=== PATIENT | male | born 1965 | race Two or more races ===

== ENCOUNTER 2022-03-23 15:31 | Inpatient (IN) | payer OTHER, SELFPAY ==
[2022-03-23 17:33] VITALS: BMI 21.9
[2022-03-23] MEDS ORDERED: Senokot S 8.6-50 MG TAB PO PRN (17:58)
[2022-03-23] MEDS ORDERED: Ondansetron PF 4 MG/2 ML Vial IVP PRN (17:58)
[2022-03-23] MEDS ORDERED: Calcium Carbonate 500 MG ChewTAB PO PRN (17:58)
[2022-03-23 19:14] LABS: Band 2 % (5-11); Hemoglobin 14.8 g/dL (14.0-18.0); Lymphocytes 6 % (21-51); MDiff Complete? YES; Mean Corpuscular HGB CONC 34.1 g/dL (32.0-36.0); Mean Corpuscular Volume 96.7 fL (78.0-98.0); Mean Platelet Volume 7.2 fL (7.4-10.4); Monocytes 10 % (0-10); Neutrophil 80 % (42-75); Platelet Count 452 thou/uL (130-400); Platelet Morphology Comment Appears Increased; Polychromasia SLIGHT = 2-3 cells (100X) (0-2/hpf); RBC Distribution Width 11.2 % (11.5-14.5); Reactive Lymphocytes 2 % (0-10); Red Blood Cell (RBC) Count 4.48 mill/uL (4.70-6.10)
[2022-03-23 19:17] LABS: Anion Gap 25 mmol/L (10-20); BUN (Urea Nitrogen) 23 mg/dL (8.4-25.7); Calc. Creatinine Clearance 42 mL/min (70-130); Calcium 9.8 mg/dL (7.8-10.44); Carbon Dioxide 17 mmol/L (22-29); Chloride 93 mmol/L (98-107); Estimated GFR 40; Glucose 244 mg/dL (70-105); Sodium 131 mmol/L (136-145)
[2022-03-23] MEDS: HYDROcodone/Acetaminophen 5/325 mg Tablet PO PRN ×2 (19:48→23:32)
[2022-03-23] MEDS ORDERED: Famotidine 20 MG TAB PO SCH (21:00)
[2022-03-24] MEDS ORDERED: Dextrose 5% in Water 1,000 ML IV PRN (00:24)
[2022-03-24] MEDS ORDERED: Dextrose 50% Abboject 50 ML SYRINGE SLOW IVP PRN (00:24)
[2022-03-24] MEDS ORDERED: Piperacillin/Tazobactam 3.375 GM in Sodium Chloride 0.9% 100 ML IVPB SCH ×2 (01:00→10:00)
[2022-03-24] MEDS ORDERED: Vancomycin Sliding Scale IVPB PRN (01:10)
[2022-03-24] MEDS ORDERED: VANCOMYCIN 1.75 GM/500 ML BAG 1.75 GM in Premix Bag 1 BAG IVPB SCH (01:15)
[2022-03-24 01:26] LABS: #Monocytes 1.1 thou/uL (0.11-0.59); #Neutrophils 7.8 thou/uL (1.40-6.50); %Basophils 0.2 % (0.0-1.0); %Eosinophils 0.1 % (0.0-10.0); %Lymphocytes 9.7 % (21.0-51.0); %Monocytes 10.8 % (0.0-10.0); %Neutrophils 79.3 % (42.0-75.0); Hemoglobin 13.5 g/dL (14.0-18.0); Mean Corpuscular HGB CONC 33.6 g/dL (32.0-36.0); Mean Corpuscular Hemoglobin 32.6 pg (27.0-31.0); Mean Corpuscular Volume 97.2 fL (78.0-98.0); Mean Platelet Volume 6.8 fL (7.4-10.4); Platelet Count 439 thou/uL (130-400); RBC Distribution Width 11.3 % (11.5-14.5); Red Blood Cell (RBC) Count 4.12 mill/uL (4.70-6.10); White Blood Cell (WBC) Count 9.8 thou/uL (4.8-10.8)
[2022-03-24] MEDS: Sodium Chloride 0.9% 1,000 ML IV SCH ×2 (01:37→16:50)
[2022-03-24 01:44] LABS: Anion Gap 26 mmol/L (10-20); BUN (Urea Nitrogen) 26 mg/dL (8.4-25.7); CRP (Inflammatory) 27.52 mg/dL (= or < 0.5); Calc. Creatinine Clearance 37 mL/min (70-130); Calcium 9.5 mg/dL (7.8-10.44); Carbon Dioxide 15 mmol/L (22-29); Chloride 91 mmol/L (98-107); Estimated GFR 35; Glucose 345 mg/dL (70-105); Potassium 4.3 mmol/L (3.5-5.1); Sodium 128 mmol/L (136-145)
[2022-03-24] MEDS: HYDROcodone/Acetaminophen 10/325 mg Tablet PO SCH ×3 (04:29→17:56)
[2022-03-24] MEDS: HumaLOG 300 UNITS/3 ML VIAL SC PRN ×3 (06:00→17:56)
[2022-03-24] MEDS ORDERED: Atorvastatin Calcium 20 MG TAB PO SCH (09:00)
[2022-03-24] MEDS ORDERED: Lisinopril 20 MG TAB PO SCH (09:00)
[2022-03-24] MEDS ORDERED: Gabapentin 300 MG CAP PO SCH ×2 (09:00→15:00)
[2022-03-24] MEDS ORDERED: Insulin Glargine 30 UNITS/0.3 ML VIAL SC SCH (09:30)
[2022-03-24] MEDS: cefTRIAXone\\ROCEPHIN 2 GM in Sodium Chloride 0.9% 100 ML IVPB SCH ×2 (10:36→10:45)
[2022-03-24] MEDS: Gabapentin 100 MG CAP PO SCH ×2 (15:24→22:05)
[2022-03-24] MEDS: Lactated Ringer's 1,000 ML IV SCH ×3 (18:30→22:07)
[2022-03-24 18:58] LABS: Creatinine, Urine 42.45 mg/dL (63-166)
[2022-03-24] MEDS: Famotidine 20 MG TAB PO SCH (22:04)
[2022-03-24] MEDS: Atorvastatin Calcium 40 MG TAB PO SCH (22:06)
[2022-03-25] MEDS: HYDROcodone/Acetaminophen 10/325 mg Tablet PO SCH ×4 (00:16→15:50)
[2022-03-25] MEDS ORDERED: Ibuprofen 200 MG TAB PO SCH (02:00)
[2022-03-25] MEDS: Acetaminophen 325 MG TAB PO PRN (02:29)
[2022-03-25] MEDS: Vancomycin 1 GM in Premix Bag 1 BAG IVPB SCH (02:30)
[2022-03-25 06:25] LABS: #Lymphocytes 0.9 thou/uL (1.20-3.40); #Monocytes 0.5 thou/uL (0.11-0.59); #Neutrophils 7.4 thou/uL (1.40-6.50); %Basophils 0.1 % (0.0-1.0); %Eosinophils 0.2 % (0.0-10.0); %Lymphocytes 10.4 % (21.0-51.0); %Monocytes 5.8 % (0.0-10.0); %Neutrophils 83.5 % (42.0-75.0); Hemoglobin 11.1 g/dL (14.0-18.0); Mean Corpuscular HGB CONC 33.9 g/dL (32.0-36.0); Mean Corpuscular Hemoglobin 32.4 pg (27.0-31.0); Mean Corpuscular Volume 95.6 fL (78.0-98.0); Mean Platelet Volume 6.7 fL (7.4-10.4); Platelet Count 389 thou/uL (130-400); RBC Distribution Width 11.1 % (11.5-14.5); Red Blood Cell (RBC) Count 3.44 mill/uL (4.70-6.10); White Blood Cell (WBC) Count 8.9 thou/uL (4.8-10.8)
[2022-03-25 06:27] LABS: Hemoglobin A1c 10.2 % (4.0-6.0)
[2022-03-25 06:43] LABS: Anion Gap 17 mmol/L (10-20); BUN (Urea Nitrogen) 17 mg/dL (8.4-25.7); Calc. Creatinine Clearance 40 mL/min (70-130); Carbon Dioxide 22 mmol/L (22-29); Chloride 95 mmol/L (98-107); Estimated GFR 39; Glucose 275 mg/dL (70-105); Potassium 3.5 mmol/L (3.5-5.1); Sodium 130 mmol/L (136-145)
[2022-03-25] MEDS: Aspirin 81 mg Enteric Coated Tablet PO SCH (11:00)
[2022-03-25] MEDS: Gabapentin 100 MG CAP PO SCH ×3 (11:01→19:55)
[2022-03-25] MEDS: Insulin Glargine 30 UNITS/0.3 ML VIAL SC SCH (11:03)
[2022-03-25] MEDS: cefTRIAXone\\ROCEPHIN 2 GM in Sodium Chloride 0.9% 100 ML IVPB SCH (11:27)
[2022-03-25] MEDS: HumaLOG 300 UNITS/3 ML VIAL SC PRN ×2 (18:33→20:05)
[2022-03-25] MEDS: HYDROcodone/Acetaminophen 10/325 mg Tablet PO PRN ×2 (19:54→23:48)
[2022-03-25] MEDS: Famotidine 20 MG TAB PO SCH (19:54)
[2022-03-25] MEDS: Atorvastatin Calcium 40 MG TAB PO SCH (19:55)
[2022-03-26 03:05] LABS: #Lymphocytes 0.9 thou/uL (1.20-3.40); #Monocytes 0.7 thou/uL (0.11-0.59); #Neutrophils 7.9 thou/uL (1.40-6.50); %Basophils 0.3 % (0.0-1.0); %Eosinophils 0.4 % (0.0-10.0); %Lymphocytes 9.7 % (21.0-51.0); %Monocytes 7.5 % (0.0-10.0); %Neutrophils 82.2 % (42.0-75.0); Hemoglobin 11.3 g/dL (14.0-18.0); Mean Corpuscular HGB CONC 35.3 g/dL (32.0-36.0); Mean Corpuscular Hemoglobin 33.7 pg (27.0-31.0); Mean Corpuscular Volume 95.4 fL (78.0-98.0); Mean Platelet Volume 6.6 fL (7.4-10.4); Platelet Count 327 thou/uL (130-400); RBC Distribution Width 11.1 % (11.5-14.5); Red Blood Cell (RBC) Count 3.36 mill/uL (4.70-6.10); White Blood Cell (WBC) Count 9.6 thou/uL (4.8-10.8)
[2022-03-26 03:23] LABS: Vancomycin, Trough 12.4 ug/mL
[2022-03-26 03:33] LABS: Anion Gap 15 mmol/L (10-20); BUN (Urea Nitrogen) 10 mg/dL (8.4-25.7); Calc. Creatinine Clearance 62 mL/min (70-130); Calcium 8.9 mg/dL (7.8-10.44); Carbon Dioxide 29 mmol/L (22-29); Chloride 93 mmol/L (98-107); Estimated GFR 64; Glucose 212 mg/dL (70-105); Potassium 3.3 mmol/L (3.5-5.1); Sodium 134 mmol/L (136-145)
[2022-03-26] MEDS: Vancomycin 1 GM in Premix Bag 1 BAG IVPB SCH (03:46)
[2022-03-26] MEDS: HYDROcodone/Acetaminophen 10/325 mg Tablet PO PRN ×5 (03:47→22:37)
[2022-03-26] MEDS: VANCOMYCIN 1.25 GM/250 ML BAG 1.25 GM in Premix Bag 1 BAG IVPB SCH (03:47)
[2022-03-26] MEDS: HumaLOG 300 UNITS/3 ML VIAL SC PRN ×4 (06:06→17:25)
[2022-03-26] MEDS ORDERED: Potassium Chloride 20 MEQ TAB PO SCH (07:15)
[2022-03-26] MEDS: Aspirin 81 mg Enteric Coated Tablet PO SCH (08:28)
[2022-03-26] MEDS: Gabapentin 100 MG CAP PO SCH ×3 (08:30→20:46)
[2022-03-26] MEDS: Insulin Glargine 30 UNITS/0.3 ML VIAL SC SCH ×2 (08:34→09:30)
[2022-03-26] MEDS ORDERED: Insulin Glargine 30 UNITS/0.3 ML VIAL SC SCH (09:00)
[2022-03-26] MEDS: cefTRIAXone\\ROCEPHIN 2 GM in Sodium Chloride 0.9% 100 ML IVPB SCH (11:48)
[2022-03-26] MEDS: Atorvastatin Calcium 40 MG TAB PO SCH (20:46)
[2022-03-26] MEDS: Famotidine 20 MG TAB PO SCH (20:46)
[2022-03-26] MEDS: Acetaminophen 325 MG TAB PO PRN (20:48)
[2022-03-27] MEDS: HYDROcodone/Acetaminophen 10/325 mg Tablet PO PRN (03:44)
[2022-03-27] MEDS: VANCOMYCIN 1.25 GM/250 ML BAG 1.25 GM in Premix Bag 1 BAG IVPB SCH (03:45)
[2022-03-27] MEDS: Acetaminophen 325 MG TAB PO PRN ×2 (04:09→19:25)
[2022-03-27] MEDS: HumaLOG 300 UNITS/3 ML VIAL SC PRN ×3 (04:16→17:57)
[2022-03-27] MEDS ORDERED: fentaNYL Citrate/PF 100 MCG/2 ML SYRINGE ONE (06:38)
[2022-03-27] MEDS ORDERED: Midazolam HCl 2 mg/2 ml Vial ONE (07:07)
[2022-03-27] MEDS ORDERED: Bupivacaine HCl 0.5%/Epinephrine 1:200,000/PF 30 ml Vial ONE (07:51)
[2022-03-27] MEDS ORDERED: PROPOFOL 200 MG/20 ML VIAL ONE (07:51)
[2022-03-27] MEDS ORDERED: Ondansetron PF 4 MG/2 ML Vial ONE (07:51)
[2022-03-27] MEDS ORDERED: Lidocaine 1% MPF 2 ML VIAL ONE (07:51)
[2022-03-27] MEDS ORDERED: Phenylephrine 10 MG/ML VIAL ONE (07:51)
[2022-03-27] MEDS: Gabapentin 100 MG CAP PO SCH (08:47)
[2022-03-27] MEDS: Aspirin 81 mg Enteric Coated Tablet PO SCH (08:47)
[2022-03-27] MEDS ORDERED: Promethazine HCl 25 MG/ML VIAL IM PRN ×2 (08:58→09:08)
[2022-03-27] MEDS ORDERED: Promethazine HCl 25 MG/ML VIAL IVPB PRN (08:58)
[2022-03-27] MEDS ORDERED: Ondansetron HCl/PF 4 MG/2 ML Vial IVP PRN (08:58)
[2022-03-27] MEDS ORDERED: Zolpidem Tartrate 5 MG TAB PO PRN (09:08)
[2022-03-27] MEDS ORDERED: diphenhydrAMINE 25 MG CAP PO PRN (09:08)
[2022-03-27] MEDS ORDERED: Naloxone HCl 0.4 mg/ml Vial IV PRN (09:08)
[2022-03-27] MEDS ORDERED: Ondansetron PF 4 MG/2 ML Vial IVP PRN (09:08)
[2022-03-27] MEDS ORDERED: HYDROmorphone 10 mg/100 ml CADD IVPB PRN (09:08)
[2022-03-27] MEDS ORDERED: diphenhydrAMINE 50 MG/ML VIAL IVP PRN (09:08)
[2022-03-27] MEDS ORDERED: diphenhydrAMINE 50 MG/ML VIAL IM PRN (09:08)
[2022-03-27] MEDS ORDERED: Fentanyl 100 MCG/2 ML VIAL ONE (09:09)
[2022-03-27] MEDS ORDERED: Communication Order-Pharmacy FS SCH (09:15)
[2022-03-27] MEDS ORDERED: Gabapentin 300 MG CAP PO SCH (09:30)
[2022-03-27 11:01] LABS: #Lymphocytes 0.9 thou/uL (1.20-3.40); #Monocytes 0.9 thou/uL (0.11-0.59); #Neutrophils 9.7 thou/uL (1.40-6.50); %Basophils 0.1 % (0.0-1.0); %Eosinophils 0.2 % (0.0-10.0); %Monocytes 7.6 % (0.0-10.0); %Neutrophils 84.2 % (42.0-75.0); Hemoglobin 10.8 g/dL (14.0-18.0); Mean Corpuscular HGB CONC 32.7 g/dL (32.0-36.0); Mean Corpuscular Hemoglobin 31.7 pg (27.0-31.0); Mean Corpuscular Volume 96.9 fL (78.0-98.0); Mean Platelet Volume 6.6 fL (7.4-10.4); Platelet Count 352 thou/uL (130-400); Red Blood Cell (RBC) Count 3.39 mill/uL (4.70-6.10); White Blood Cell (WBC) Count 11.5 thou/uL (4.8-10.8)
[2022-03-27] MEDS: Insulin Glargine 30 UNITS/0.3 ML VIAL SC SCH (11:12)
[2022-03-27] MEDS: cefTRIAXone\\ROCEPHIN 2 GM in Sodium Chloride 0.9% 100 ML IVPB SCH (11:13)
[2022-03-27 11:20] LABS: Anion Gap 17 mmol/L (10-20); BUN (Urea Nitrogen) 8 mg/dL (8.4-25.7); Calc. Creatinine Clearance 73 mL/min (70-130); Carbon Dioxide 35 mmol/L (22-29); Chloride 90 mmol/L (98-107); Estimated GFR 79; Glucose 203 mg/dL (70-105); Potassium 3.4 mmol/L (3.5-5.1); Sodium 139 mmol/L (136-145)
[2022-03-27] MEDS: Gabapentin 300 MG CAP PO SCH ×2 (14:53→20:56)
[2022-03-27] MEDS: Famotidine 20 MG TAB PO SCH (20:55)
[2022-03-27] MEDS: Atorvastatin Calcium 40 MG TAB PO SCH (20:57)
[2022-03-28 03:23] LABS: #Lymphocytes 0.9 thou/uL (1.20-3.40); #Monocytes 0.9 thou/uL (0.11-0.59); #Neutrophils 8.8 thou/uL (1.40-6.50); %Basophils 0.2 % (0.0-1.0); %Eosinophils 0.3 % (0.0-10.0); %Lymphocytes 8.4 % (21.0-51.0); %Monocytes 8.4 % (0.0-10.0); %Neutrophils 82.8 % (42.0-75.0); Mean Corpuscular HGB CONC 34.1 g/dL (32.0-36.0); Mean Corpuscular Hemoglobin 32.9 pg (27.0-31.0); Mean Corpuscular Volume 96.5 fL (78.0-98.0); Mean Platelet Volume 6.6 fL (7.4-10.4); Platelet Count 304 thou/uL (130-400); RBC Distribution Width 11.1 % (11.5-14.5); Red Blood Cell (RBC) Count 3.04 mill/uL (4.70-6.10); White Blood Cell (WBC) Count 10.7 thou/uL (4.8-10.8)
[2022-03-28 03:42] LABS: Anion Gap 15 mmol/L (10-20); BUN (Urea Nitrogen) 11 mg/dL (8.4-25.7); Calc. Creatinine Clearance 78 mL/min (70-130); Calcium 8.6 mg/dL (7.8-10.44); Carbon Dioxide 37 mmol/L (22-29); Chloride 88 mmol/L (98-107); Estimated GFR 86; Glucose 247 mg/dL (70-105); Potassium 3.2 mmol/L (3.5-5.1); Sodium 137 mmol/L (136-145)
[2022-03-28 03:46] LABS: Vancomycin, Trough 11.5 ug/mL
[2022-03-28] MEDS: VANCOMYCIN 1.25 GM/250 ML BAG 1.25 GM in Premix Bag 1 BAG IVPB SCH (03:57)
[2022-03-28] MEDS: HumaLOG 300 UNITS/3 ML VIAL SC PRN ×3 (05:47→16:58)
[2022-03-28] MEDS ORDERED: Insulin Glargine 30 UNITS/0.3 ML VIAL SC SCH (09:00)
[2022-03-28] MEDS: Gabapentin 300 MG CAP PO SCH ×3 (09:03→20:59)
[2022-03-28] MEDS: Acetaminophen 325 MG TAB PO PRN (09:03)
[2022-03-28] MEDS: Insulin Glargine 30 UNITS/0.3 ML VIAL SC SCH (09:03)
[2022-03-28] MEDS: Aspirin 81 mg Enteric Coated Tablet PO SCH (09:04)
[2022-03-28] MEDS: Famotidine 20 MG TAB PO SCH ×2 (09:04→20:59)
[2022-03-28] MEDS ORDERED: Potassium Chloride 20 MEQ TAB PO SCH (09:15)
[2022-03-28] MEDS ORDERED: HYDROcodone/Acetaminophen 10/325 mg Tablet PO PRN (09:26)
[2022-03-28] MEDS ORDERED: Fentanyl 100 MCG/2 ML VIAL SLOW IVP PRN (09:31)
[2022-03-28] MEDS: HYDROcodone/Acetaminophen 10/325 mg Tablet PO PRN ×3 (10:20→21:00)
[2022-03-28] MEDS: traMADol HCl 50 MG TAB PO PRN (17:00)
[2022-03-28] MEDS: Atorvastatin Calcium 40 MG TAB PO SCH (20:58)
[2022-03-29] MEDS: HYDROcodone/Acetaminophen 10/325 mg Tablet PO PRN ×4 (05:57→20:35)
[2022-03-29 06:16] LABS: #Eosinphils 0.2 thou/uL (0.0-0.7); #Lymphocytes 0.9 thou/uL (1.20-3.40); #Neutrophils 6.5 thou/uL (1.40-6.50); %Basophils 0.2 % (0.0-1.0); %Eosinophils 2.1 % (0.0-10.0); %Monocytes 11.1 % (0.0-10.0); %Neutrophils 75.6 % (42.0-75.0); Hemoglobin 10.1 g/dL (14.0-18.0); Mean Corpuscular HGB CONC 33.5 g/dL (32.0-36.0); Mean Corpuscular Hemoglobin 32.2 pg (27.0-31.0); Mean Platelet Volume 6.9 fL (7.4-10.4); Platelet Count 300 thou/uL (130-400); RBC Distribution Width 11.1 % (11.5-14.5); Red Blood Cell (RBC) Count 3.15 mill/uL (4.70-6.10); White Blood Cell (WBC) Count 8.6 thou/uL (4.8-10.8)
[2022-03-29 06:36] LABS: Anion Gap 13 mmol/L (10-20); BUN (Urea Nitrogen) 11 mg/dL (8.4-25.7); Calc. Creatinine Clearance 80 mL/min (70-130); Calcium 8.5 mg/dL (7.8-10.44); Carbon Dioxide 37 mmol/L (22-29); Chloride 87 mmol/L (98-107); Estimated GFR 88; Glucose 265 mg/dL (70-105); Potassium 3.2 mmol/L (3.5-5.1); Sodium 134 mmol/L (136-145)
[2022-03-29] MEDS: HumaLOG 300 UNITS/3 ML VIAL SC PRN ×3 (07:01→16:27)
[2022-03-29] MEDS: Insulin Glargine 30 UNITS/0.3 ML VIAL SC SCH (08:21)
[2022-03-29] MEDS: traMADol HCl 50 MG TAB PO PRN ×2 (08:22→17:47)
[2022-03-29] MEDS: Gabapentin 300 MG CAP PO SCH ×3 (08:22→20:34)
[2022-03-29] MEDS: Famotidine 20 MG TAB PO SCH ×2 (08:22→20:34)
[2022-03-29] MEDS: Aspirin 81 mg Enteric Coated Tablet PO SCH (08:22)
[2022-03-29] MEDS ORDERED: Insulin Glargine 30 UNITS/0.3 ML VIAL SC SCH (12:00)
[2022-03-29] MEDS ORDERED: Potassium Chloride 20 MEQ TAB PO SCH (17:30)
[2022-03-29] MEDS: Atorvastatin Calcium 40 MG TAB PO SCH (20:34)
[2022-03-30] MEDS: HYDROcodone/Acetaminophen 10/325 mg Tablet PO PRN ×5 (01:50→22:21)
[2022-03-30] MEDS: Aspirin 81 mg Enteric Coated Tablet PO SCH (08:36)
[2022-03-30] MEDS: Gabapentin 300 MG CAP PO SCH ×3 (08:36→20:46)
[2022-03-30] MEDS: Famotidine 20 MG TAB PO SCH ×2 (08:36→20:48)
[2022-03-30] MEDS ORDERED: Insulin Glargine 30 UNITS/0.3 ML VIAL SC SCH (09:00)
[2022-03-30] MEDS: HumaLOG 300 UNITS/3 ML VIAL SC PRN ×2 (12:26→20:48)
[2022-03-30] MEDS: Atorvastatin Calcium 40 MG TAB PO SCH (20:46)
[2022-03-30] MEDS: traMADol HCl 50 MG TAB PO PRN (20:47)
[2022-03-31] MEDS: HYDROcodone/Acetaminophen 10/325 mg Tablet PO PRN ×5 (02:30→20:49)
[2022-03-31] MEDS: traMADol HCl 50 MG TAB PO PRN ×3 (03:56→13:05)
[2022-03-31] MEDS: HumaLOG 300 UNITS/3 ML VIAL SC PRN ×2 (04:11→13:02)
[2022-03-31] MEDS: Gabapentin 300 MG CAP PO SCH ×3 (09:20→20:48)
[2022-03-31] MEDS: Lisinopril 20 MG TAB PO SCH (09:20)
[2022-03-31] MEDS: Aspirin 81 mg Enteric Coated Tablet PO SCH (09:20)
[2022-03-31] MEDS: Famotidine 20 MG TAB PO SCH ×2 (09:20→20:48)
[2022-03-31] MEDS: Insulin Glargine 30 UNITS/0.3 ML VIAL SC SCH (09:21)
[2022-03-31] MEDS: Atorvastatin Calcium 40 MG TAB PO SCH (20:48)
[2022-04-01] MEDS: HYDROcodone/Acetaminophen 10/325 mg Tablet PO PRN ×3 (00:34→09:41)
[2022-04-01] MEDS: traMADol HCl 50 MG TAB PO PRN (03:06)
[2022-04-01] MEDS: HumaLOG 300 UNITS/3 ML VIAL SC PRN (05:40)
[2022-04-01 08:14] VITALS: BP 109/72; TEMP 98
[2022-04-01] MEDS: Insulin Glargine 30 UNITS/0.3 ML VIAL SC SCH (08:20)
[2022-04-01] MEDS: Famotidine 20 MG TAB PO SCH (08:21)
[2022-04-01] MEDS: Aspirin 81 mg Enteric Coated Tablet PO SCH (08:21)
[2022-04-01] MEDS: Lisinopril 20 MG TAB PO SCH (08:22)
[2022-04-01] MEDS: Gabapentin 300 MG CAP PO SCH (08:22)
[2022-04-01] MEDS ORDERED: Ergocalciferol 1.25 MG(50,000 UNITS) CAP PO SCH (09:00)
== END 2022-04-01 11:58 | disposition swing bed (61) | DRG 240 ==
LOC: T4-B 17:15
PROVIDERS: ADMIT Student in an Organized Health Care Education/Training Program; ATTEND Student in an Organized Health Care Education/Training Program
PROC: 0Y6H0Z1 Detachment at Right Lower Leg, High, Open Approach (ICD-10-PCS; principal; 2022-03-27)
PROC: 02HV33Z Insertion of Infusion Device into Superior Vena Cava, Percutaneous Approach (ICD-10-PCS; 2022-03-27)
PROC: B548ZZA Ultrasonography of Superior Vena Cava, Guidance (ICD-10-PCS; 2022-03-27)
DX: E11.52 Type 2 diabetes mellitus with diabetic peripheral angiopathy with gangrene (principal); E87.1 Hypo-osmolality and hyponatremia; M86.171 Other acute osteomyelitis, right ankle and foot; M84.674A Pathological fracture in other disease, right foot, initial encounter for fracture; E87.2 Acidosis; N17.9 Acute kidney failure, unspecified; Z20.822 Contact with and (suspected) exposure to COVID-19; E11.69 Type 2 diabetes mellitus with other specified complication; E78.00 Pure hypercholesterolemia, unspecified; E11.40 Type 2 diabetes mellitus with diabetic neuropathy, unspecified; E11.65 Type 2 diabetes mellitus with hyperglycemia; E11.22 Type 2 diabetes mellitus with diabetic chronic kidney disease; I12.9 Hypertensive chronic kidney disease with stage 1 through stage 4 chronic kidney disease, or unspecified chronic kidney disease; E87.6 Hypokalemia; I25.2 Old myocardial infarction; Z79.899 Other long term (current) drug therapy; Z98.890 Other specified postprocedural states; Z95.5 Presence of coronary angioplasty implant and graft
CPT/HCPCS: 36415; 36416; 71045; 76770; 80048; 80202; 82306; 82570; 83036; 83605; 83935; 83970; 84156; 84300; 85025; 86140; 87070; 87077; 87186; 87205; 88307; 93306; 93923; 97139; C1751; J0696; J1815; J2250; J2370; J2405; J2543; J2704; J3010; J3370; J3490; J7050; J7120; U0003; U0005